=== PATIENT | female | born 1985 | race Caucasian/White ===

== ENCOUNTER 2017-04-19 14:57 | Emergency (ER) | payer MEDICAID ==
[~2017-04-19] VITALS: Ht 167.6 cm; Wt 84.4 kg
[~2017-04-19 14:57] MED LIST: ACETAMINOPHEN-1 EAC1 PO; ACTICIN 5% CREA60 G1 TOP; AUGMENTIN 875875 MG PO; BIRTH CONTROL; IBUPROFEN 800800 M1 PO; PREDNISONE 10 M10 M1 PO; PREDNISONE 20 M20 M1 PO
[2017-04-19 15:19] LABS: URINE BILIRUBIN NEGATIVE (Negative); URINE BLOOD 3+ (Negative); URINE CLARITY CLOUDY; URINE COLOR YELLOW; URINE GLUCOSE-RANDOM NEGATIVE (Negative); URINE KETONES NEGATIVE (Negative); URINE NITRITE-REFLEX NEGATIVE (Negative); URINE PROTEIN 2+ (Negative); URINE UROBILINOGEN 0.2 E.U./dl (0.2-1.0)
[2017-04-19 15:20] LABS: URINE LEUKOCYTES-REFLEX 3+ (Negative)
[2017-04-19 15:26] LABS: CASTS None Seen /LPF (None Seen); CRYSTALS None Seen /LPF (None Seen); SQUAMOUS NONE SEEN /LPF (0-3)
[2017-04-19 15:27] LABS: URINE WBC-REFLEX >25 Many /HPF (0-5); WBC CLUMPS Many (None Seen)
[2017-04-19 15:49] LABS: ABSOLUTE LYMPHOCYTES 1.1 thou/uL (0.8-5.3); ABSOLUTE MONOCYTES 0.6 thou/uL (0.0-1.2); ABSOLUTE NEUTROPHILS 7.7 thou/uL (1.6-8.1); BASOPHILS 0.4 %; EOSINOPHILS 0.2 %; HEMATOCRIT 42.1 % (37.0-47.0); HEMOGLOBIN 14.1 gm/dL (12.0-15.0); LYMPHOCYTES 11.5 %; MCH 28.3 pg (26.0-34.0); MCHC 33.5 g/dL (28.0-37.0); MCV 84.4 fL (80.0-100.0); MONOCYTES 6.8 %; MPV 9.6 fl. (7.2-11.1); NUCLEATED RBCS 0 /100WBC; PLATELET COUNT* 200 thou/uL (150-400); POLYS 81.1 %; RBC 4.98 mil/uL (4.20-5.00); RDW-CV 13.9 % (10.5-14.5); WBC 9.5 thou/uL (4.0-11.0)
[2017-04-19 15:52] LABS: CALCIUM 8.7 mg/dL (8.5-10.1); CREATININE 0.9 mg/dL (0.6-1.3); POTASSIUM 3.4 mmol/L (3.5-5.1)
[2017-04-19 15:57] LABS: ALBUMIN 3.5 g/dL (3.4-5.0); TOTAL BILIRUBIN 0.5 mg/dL (<0.1-1.0); TOTAL PROTEIN 7.2 g/dL (6.4-8.2)
[2017-04-19] MEDS ORDERED: LEVAQUIN 750 M750 MG PO (16:14)
[2017-04-19] MEDS ORDERED: ZOFRAN4 MG PO (16:15)
[2017-04-19 16:29] VITALS: BP 102/69
== END 2017-04-19 16:30 | disposition home or self-care (01) ==
LOC: M.ERS 14:57
PROVIDERS: Physician Assistant
DX: N12 Tubulo-interstitial nephritis, not specified as acute or chronic (principal)